=== PATIENT | female | born 1990 | race Caucasian/White ===

== ENCOUNTER 2017-03-12 19:38 | Emergency (ER) | payer BC ==
[~2017-03-12] VITALS: Ht 152.4 cm; Wt 44.2 kg
[2017-03-12] MEDS ORDERED: ONDANSETRON 2MG/ML, 2ML IVPush ONE ×2 (20:00→22:30)
[2017-03-12] MEDS ORDERED: SODIUM CHLORIDE 0.9% 1,000ML IVBOLUS ONE ×2 (20:00→21:30)
[2017-03-12] MEDS ORDERED: SODIUM CHLORIDE FLUSH 10ML SYR IVF ONE (20:00)
[2017-03-12] MEDS ORDERED: ONDANSETRON 2MG/ML, 2ML ONE ×2 (20:03→22:06)
[2017-03-12 20:21] LABS: BLOOD UREA NITROGEN 9 mg/dL (7-18)
[2017-03-12 21:24] VITALS: BP 98/56
== END 2017-03-12 22:26 | disposition home or self-care (01) ==
LOC: ED 22:20
DX: O26.891 Other specified pregnancy related conditions, first trimester (principal); O21.8 Other vomiting complicating pregnancy
CPT/HCPCS: 36415; 76801; 80048; 81001; 82040; 84702; 85025; 87086; 96361; 96374; 96375; 99285; J2405; J7030

== ENCOUNTER 2017-10-31 02:45 | Inpatient (IN) | payer BC ==
[~2017-10-31] VITALS: Ht 152.4 cm; Wt 56.8 kg
[2017-10-31] MEDS: LACTATED RINGERS 1,000 ML IV SCH ×2 (02:49→03:20)
[2017-10-31] MEDS ORDERED: OXYTOCIN 30U/ 0.9% NaCL 500ML 500 ML IV ONE (02:50)
[2017-10-31] MEDS ORDERED: D5%-LACTATED RINGERS 1,000 ML IV SCH (02:50)
[2017-10-31] MEDS: FENTANYL PF 100 MCG/2ML IVPush PRN ×2 (02:50→04:49)
[2017-10-31] MEDS ORDERED: ONDANSETRON 2MG/ML, 2ML IVPush PRN (03:00)
[2017-10-31] MEDS ORDERED: FENTANYL PF 100 MCG/2ML IV PRN (03:00)
[2017-10-31] MEDS ORDERED: CALCIUM CARBONATE 500 MG TAB.CHEW PO PRN (03:00)
[2017-10-31 03:16] LABS: MEAN CORPUSCULAR HEMOGLOBIN 24.8 pg (27.0-34.8); MEAN CORPUSCULAR HGB CONC 31.8 g/dL (32.4-35.8); PLATELET COUNT 182 x10^3/uL (130-400); RED BLOOD COUNT 3.98 x10^6/uL (3.82-5.3)
[2017-10-31 03:38] LABS: MD YES
[2017-10-31 03:40] LABS: BAND#(MANUAL) 0.16 x10^3/uL; BANDS%(MANUAL) 1 % (0-7); LYMPH#(MANUAL) 1.28 x10^3/uL (1-3.4); LYMPHS% (MANUAL) 8 % (22-44); MONOS#(MANUAL) 0.32 x10^3/uL (0.3-2.7); MONOS% (MANUAL) 2 % (2-9); SEG#(MANUAL) 14.24 x10^3/uL (1.8-6.8); SEGS% (MANUAL) 89 % (42-75)
[2017-10-31 03:41] LABS: ANISOCYTOSIS 1+
[2017-10-31 03:42] LABS: MICROCYTOSIS 1+; OVALOCYTES 1+; POLYCHROMASIA 1+
[2017-10-31 03:43] LABS: <PLATELET ESTIMATE> ADEQUATE; GIANT PLATELETS 1+; LARGE PLATELETS 1+
[2017-10-31] MEDS ORDERED: FENTANYL PF 100 MCG/2ML ONE ×3 (04:44→06:01)
[2017-10-31] MEDS ORDERED: BUPIVACAINE 0.25% ONE ×2 (06:01→06:31)
[2017-10-31] MEDS ORDERED: FENTANYL/BUPIV./NS/PF 250 ML EPIDCONT ONE (06:02)
[2017-10-31] MEDS ORDERED: FENTANYL/BUPIV./NS/PF 250 ML EPIDCONT SCH (06:29)
[2017-10-31] MEDS ORDERED: LACTATED RINGERS 1,000 ML IV SCH (06:29)
[2017-10-31] MEDS ORDERED: LACTATED RINGERS 1,000 ML IVBOLUS PRN (06:30)
[2017-10-31] MEDS: OXYTOCIN 30U/ 0.9% NaCL 500ML 500 ML IV SCH ×12 (09:25→22:39)
[2017-10-31] MEDS ORDERED: NEWBORN KIT ONE (09:47)
[2017-10-31] MEDS ORDERED: MISOPROSTOL 200 MCG TABLET PR PRN (10:00)
[2017-10-31] MEDS ORDERED: OXYcodone/APAP 5/325MG TABLET PO PRN (10:00)
[2017-10-31] MEDS ORDERED: ONDANSETRON 2MG/ML, 2ML IV PRN (10:00)
[2017-10-31] MEDS ORDERED: IBUPROFEN 600 MG TABLET ONE (11:37)
[2017-10-31] MEDS: IBUPROFEN 600 MG TABLET PO PRN ×2 (11:38→19:12)
[2017-10-31 12:00] VITALS: BP 99/54
[2017-10-31 16:00] VITALS: BP 108/56
[2017-10-31 18:29] LABS: BASOPHILS # (AUTO) 0.05 x10^3/uL (0-0.1); BASOPHILS % (AUTO) 0 % (0-1); EOSINOPHILS % (AUTO) 0 % (1-7); LYMPHOCYTES # (AUTO) 1.99 x10^3/uL (1-3.4); LYMPHOCYTES % (AUTO) 12 % (22-44); MD MORPH REVIEW ONLY; MEAN CORPUSCULAR HEMOGLOBIN 24.8 pg (27.0-34.8); MEAN CORPUSCULAR HGB CONC 31.7 g/dL (32.4-35.8); MEAN CORPUSCULAR VOLUME 78.3 fL (80-100); MEAN PLATELET VOLUME 13.4 fL (7.4-10.4); MONOCYTES % (AUTO) 7 % (2-9); NEUTROPHILS # (AUTO) 13.05 x10^3/uL (1.8-6.8); NEUTROPHILS % (AUTO) 81 % (42-75); PLATELET COUNT 147 x10^3/uL (130-400); RED BLOOD COUNT 3.33 x10^6/uL (3.82-5.3); RED CELL DISTRIBUTION WIDTH 19.7 % (9.6-15.2)
[2017-10-31 18:30] LABS: <PLATELET ESTIMATE> ADEQUATE; ANISOCYTOSIS 1+; GIANT PLATELETS 1+; LARGE PLATELETS 2+; MICROCYTOSIS 1+; POLYCHROMASIA 1+; TARGET CELLS 1+
[2017-10-31 19:30] VITALS: BP 100/60
[2017-10-31] MEDS: OXYcodone/APAP 5/325MG TABLET PO PRN (21:41)
[2017-11-01 00:05] VITALS: BP 115/69
[2017-11-01] MEDS: OXYTOCIN 30U/ 0.9% NaCL 500ML 500 ML IV SCH ×3 (00:05→15:45)
[2017-11-01 03:40] VITALS: BP 109/70
[2017-11-01] MEDS: IBUPROFEN 600 MG TABLET PO PRN ×3 (03:44→16:16)
[2017-11-01] MEDS: OXYcodone/APAP 5/325MG TABLET PO PRN ×3 (03:44→20:01)
[2017-11-01 07:30] VITALS: BP 105/65
[2017-11-01] MEDS: PRENATAL VIT/IRON/FA 1 EACH TABLET PO SCH (10:18)
[2017-11-01] MEDS: DOCUSATE 100 MG CAPSULE PO PRN ×2 (10:18→20:01)
[2017-11-01 19:40] VITALS: BP 112/70
[2017-11-02] MEDS ORDERED: IBUP-1222 PO (01:26)
[2017-11-02] MEDS ORDERED: OXYC-302 PO (01:28)
[2017-11-02] MEDS: OXYTOCIN 30U/ 0.9% NaCL 500ML 500 ML IV SCH ×2 (01:45→11:45)
[2017-11-02] MEDS: OXYcodone/APAP 5/325MG TABLET PO PRN (05:23)
[2017-11-02] MEDS: IBUPROFEN 600 MG TABLET PO PRN (05:23)
[2017-11-02 07:50] VITALS: BP 105/57
[2017-11-02] MEDS: PRENATAL VIT/IRON/FA 1 EACH TABLET PO SCH (08:59)
[2017-11-02] MEDS: DOCUSATE 100 MG CAPSULE PO PRN (08:59)
== END 2017-11-02 12:00 | disposition home or self-care (01) | DRG 775 ==
LOC: LDOP 02:45 → LDIP 02:47 → 2NW 11:42
PROVIDERS: ADMIT Obstetrics & Gynecology; ATTEND Obstetrics & Gynecology
PROC: 10E0XZZ Delivery of Products of Conception, External Approach (ICD-10-PCS; principal; 2017-10-31)
PROC: 3E0R3BZ Introduction of Anesthetic Agent into Spinal Canal, Percutaneous Approach (ICD-10-PCS; 2017-10-31)
PROC: 00HU33Z Insertion of Infusion Device into Spinal Canal, Percutaneous Approach (ICD-10-PCS; 2017-10-31)
PROC: 10907ZC Drainage of Amniotic Fluid, Therapeutic from Products of Conception, Via Natural or Artificial Opening (ICD-10-PCS; 2017-10-31)
DX: O76 Abnormality in fetal heart rate and rhythm complicating labor and delivery (principal); O63.1 Prolonged second stage (of labor); O77.0 Labor and delivery complicated by meconium in amniotic fluid; Z37.0 Single live birth; O99.824 Streptococcus B carrier state complicating childbirth; Z3A.40 40 weeks gestation of pregnancy
CPT/HCPCS: 36415; 82803; 85025; 86850; 86900; J3010; J2590; J7120